=== PATIENT | male | born 1985 | race American Indian/Alaskan Native ===

== ENCOUNTER 2017-05-05 09:53 | Outpatient (CLI) | payer OTHER ==
--- NOTE | 2017-05-05 13:32 | XRay Report ---
LUMBOSACRAL SPINE, 3 VIEWS: History: Back pain Findings: The vertebral bodies, disk spaces and posterior elements are intact. No compression deformity or malalignment. The SI joints are symmetric and unremarkable. Impression: 1. No evidence for acute injury to the lumbar spine.
--- NOTE | 2017-05-05 13:33 | XRay Report ---
LEFT KNEE, 2 views: History: Pain, osteoarthritis. The bony architecture is intact without evidence of fracture or dislocation. No significant soft tissue abnormality is seen. IMPRESSION: Normal left knee.
== END 2017-05-05 09:54 | disposition home or self-care (01) ==
LOC: PF 09:53
PROVIDERS: ATTEND Internal Medicine
DX: M25.562 Pain in left knee (principal); M54.5 Low back pain; J45.909 Unspecified asthma, uncomplicated; G47.33 Obstructive sleep apnea (adult) (pediatric); F31.81 Bipolar II disorder; I10 Essential (primary) hypertension; S96.912A Strain of unspecified muscle and tendon at ankle and foot level, left foot, initial encounter; H93.19 Tinnitus, unspecified ear; X58.XXXA Exposure to other specified factors, initial encounter; Y93.89 Activity, other specified; Y92.89 Other specified places as the place of occurrence of the external cause; Y99.8 Other external cause status
CPT/HCPCS: 72100; 94010